=== PATIENT | female | born 1980 | race Caucasian/White ===

== ENCOUNTER 2017-03-13 19:15 | Emergency (ER) | payer SELFPAY ==
[2017-03-13] MEDS ORDERED: KETOROLAC 30 MG/ML VIAL IVP ONE (19:33)
[2017-03-13] MEDS ORDERED: ONDANSETRON HCL IV 4 MG/2 ML VIAL IVP ONE (19:33)
--- NOTE | 2017-03-13 19:38 | Emergency Department Record ---
History of Present Illness - General Chief complaint: Pain Stated complaint: RIB PAIN/HURTS TO BREATHE Time Seen by Provider: 03/13/17 19:25 Source: Patient Mode of Arrival: Ambulatory Limitations: No limitations - History of Present Illness Initial comments: 37 yo female presents to ED with a 2-3 day history of left sided lateral rib pain, pain with deep inspiration. Patient reports nausea/vomiting symptoms prior to her symptoms beginning. Patient denies fevers/chills, denies health problems at her baseline. Patient does report non-productive cough symptoms as well. Patient denies calf pain, swelling, history of DVT, or recent immobilization. MD Complaint: Other Onset/Timin -: Days(s) Location: Left History of Same: Yes Radiation: None Severity scale (1-10): 6 Quality: Aching Consistency: Constant, Getting worse Improves with: Nothing Worsens with: Nothing - Related Data Home Medications Medication Instructions Recorded Confirmed Last Taken Multivitamin [Multi-Vitamin Daily] 1 each PO DAILY 01/12/15 10/03/16 10/02/16 Previous Rx's Medication Instructions Recorded Ibuprofen [Motrin 600Mg] 600 mg PO Q6H #30 tablet 03/13/17 Allergies Allergy/AdvReac Type Severity Reaction Status Date / Time Penicillins Allergy Mild RASH Verified 10/03/16 08:36 hydrocodone bitartrate Allergy NAUSEA Verified 10/03/16 08:36 [From Vicodin] morphine AdvReac Mild NAUSEA Verified 10/03/16 08:36 codeine AdvReac VOMITING Verified 10/03/16 08:36 Travel Screening - Travel/Exposure Within Last 30 Days Have you traveled within the last 30 days?: No Review of Systems Constitutional: Denies: Chills, Fever, Malaise, Night sweats Eyes: Denies: Eye discharge, Eye pain, Photophobia ENT: Denies: Congestion, Ear pain, Epistaxis Respiratory: Denies: Cough, Dyspnea Cardiovascular: Reports: Chest pain. Denies: Dyspnea on exertion Endocrine: Denies: Fatigue, Heat or cold intolerance Gastrointestinal: Reports: Nausea, Vomiting. Denies: Abdominal pain Genitourinary: Denies: Dysuria, Frequency, Hematuria, Incontinence Musculoskeletal: Denies: Arthralgia, Back pain, Gout, Joint swelling Skin: Denies: Bruising Neurological: Denies: Abnormal gait, Headache, Numbness, Seizure Psychiatric: Denies: Anxiety Hematological/Lymphatic: Denies: Anemia, Blood Clots Past Medical History - SOCIAL HISTORY Smoking Status: Current every day smoker Alcohol Use: None Drug Use: None - RESPIRATORY Hx Respiratory Disorders: Yes Hx Asthma: Yes - CARDIOVASCULAR Hx Cardio Disorders: No - NEURO Hx Neuro Disorders: No - GI Hx GI Disorders: No - Hx Genitourinary Disorders: No - ENDOCRINE Hx Endocrine Disorders: No - MUSCULOSKELETAL Hx Musculoskeletal Disorders: No - PSYCH Hx Psych Problems: No - HEMATOLOGY/ONCOLOGY Hx Hematology/Oncology Disorders: No Family Medical History Any Significant Family History?: Yes Hx Cancer: Father, Mother Hx Heart Disease: Mother Hx HTN: Mother Physical Exam - General General Appearance: Alert, Oriented x3, Cooperative, Mild distress Limitations: No limitations - Head Head exam: Atraumatic, Normocephalic, Normal inspection Head exam detail: negative: Abrasion, Contusion, Knox's sign, General tenderness, Hematoma, Laceration - Eye Eye exam: Normal appearance. negative: Conjunctival injection, Periorbital swelling, Periorbital tenderness, Scleral icterus - ENT Ear exam: negative: Auricular hematoma, Auricular trauma Nasal Exam: negative: Active bleeding, Discharge, Dried blood, Foreign body Mouth exam: negative: Drooling, Laceration, Muffled voice, Tongue elevation - Neck Neck exam: Normal inspection. negative: Meningismus, Tenderness - Respiratory Respiratory exam: Normal lung sounds bilaterally, Chest wall tenderness (Left lateral ribs on examination). negative: Rales, Respiratory distress, Rhonchi, Stridor - Cardiovascular Cardiovascular Exam: Regular rate, Normal rhythm, Normal heart sounds - GI/Abdominal GI/Abdominal exam: Soft. negative: Rebound, Rigid, Tenderness - Rectal Rectal exam: Deferred - exam: Deferred - Extremities Extremities exam: Normal inspection. negative: Calf tenderness, Pedal edema, Tenderness - Back Back exam: Denies: CVA tenderness (R), CVA tenderness (L) - Neurological Neurological exam: Alert, Normal gait, Oriented X3 - Psychiatric Psychiatric exam: Normal affect, Normal mood - Skin Skin exam: Normal color. negative: Abrasion Type of lesion: negative: abrasion Course Vital Signs 03/13/17 19:20 Temperature 98.2 F Pulse Rate 117 H Respiratory 18 Rate Blood Pressure 125/100 Pulse Ox 98 - Reevaluation(s) Reevaluation #1: 03/13/17 20:32 Labs reviewed, D-Dimer minimally elevated, labs are otherwise grossly unremarkable for an acute process. CTA ordered. Reevaluation #2: 03/13/17 22:23 CTA Chest: No acute process Patient and her mother updated on all results, repeat abdominal examination demonstrates no pain on palpation, UA demonstrates no blood making ureteral calculus unlikely. Patient was updated on all results, reports that her pain symptoms are improved, and appears stable for discharge at this time. Medical Decision Making - Lab Data Result diagrams: 03/13/17 19:45 03/13/17 19:45 Disposition Disposition: Discharge Clinical Impression: Chest wall pain Disposition: Home, Self-Care Condition: (2) Stable Instructions: Costochondritis (ED) Additional Instructions: Return to ED if your symptoms worsen or if you have any concerns. Motrin 800 mg as directed. Follow-up with your family doctor in 3-5 days as directed. Prescriptions: Ibuprofen [Motrin 600Mg] 600 mg PO Q6H #30 tablet Forms: Patient Portal Access Time of Disposition: 22:26
[2017-03-13] MEDS ORDERED: 0.9 % SODIUM CHLORIDE 1000ML 1,000 ML IV SCH (19:45)
[2017-03-13 19:47] LABS: URINE APPEARANCE CLEAR; URINE BILIRUBIN NEGATIVE (NEGATIVE); URINE BLOOD TRACE-I (NEGATIVE); URINE COLOR YELLOW; URINE GLUCOSE (UA) NEGATIVE (NEGATIVE); URINE KETONE NEGATIVE (NEGATIVE); URINE LEUKOCYTE ESTERASE NEGATIVE (NEGATIVE); URINE NITRITE NEGATIVE (NEGATIVE); URINE PROTEIN NEGATIVE (NEGATIVE); URINE UROBILINOGEN 0.2 E.U./dL (0.20 - 1.00)
[2017-03-13 19:53] LABS: HCG,QUALITATIVE URINE NEGATIVE (NEGATIVE)
[2017-03-13 19:54] LABS: BASO % 0.5 % (0-6); EOS % 1.2 % (0-6); GRAN % 61.6 % (47-80); HEMATOCRIT 43.5 % (35.0-47.0); HEMOGLOBIN 14.8 gm/dl (11.6-16.0); LYMPH % 23.4 % (16-45); MEAN CELL VOLUME 98.4 fl (81-97); MEAN CORPUSCULAR HEMOGLOBIN 33.5 pg (27-33); MEAN PLATELET VOLUME 11.2 fl (7.4-10.4); MONO % 13.3 % (0-9); PLATELET COUNT 232 K/uL (130-400); RED BLOOD COUNT 4.42 M/uL (3.80-5.40); RED CELL DISTRIBUTION WIDTH 12.2 % (11.5-14.5); WHITE BLOOD COUNT W/O DIFF 8.1 K/uL (4.2-12.2)
[2017-03-13 19:57] LABS: URINE BACTERIA NONE SEEN; URINE RBC 0 - 2 (NONE SEEN); URINE WBC 0 - 2 (0-2/hpf)
[2017-03-13 20:06] LABS: ALB/GLOB RATIO 1.7 (1.1-1.8); ALKALINE PHOSPHATASE 103 U/L (38-126); ALT/SGPT 32 U/L (9-52); ANION GAP 9.4 (7-16); AST/SGOT 27 U/L (14-36); BILIRUBIN,TOTAL 0.43 mg/dL (0.2-1.3); BLOOD UREA NITROGEN 11 mg/dL (7-17); CARBON DIOXIDE 24.6 mmol/L (22-30); CREATININE 0.7 mg/dL (0.52-1.04); EST GLOMERULAR FILTRATION RATE > 60 ml/min; GLUCOSE,RANDOM 89 mg/dL (70-110)
[2017-03-13] MEDS ORDERED: IBUPROFEN 600 MG TABLET PO ONE (22:04)
== END 2017-03-13 22:44 | disposition home or self-care (01) ==
LOC: ER 19:15
DX: R07.81 Pleurodynia (principal); R11.2 Nausea with vomiting, unspecified; R79.89 Other specified abnormal findings of blood chemistry; F17.210 Nicotine dependence, cigarettes, uncomplicated
CPT/HCPCS: 99284 ×2; 96374; 96375; 85025; 80053; 81001; 81025; 85379; 71275; Q9967; J1885; J2405; J7030

== ENCOUNTER 2018-07-30 09:16 | Emergency (ER) | payer BC ==
[2018-07-30] MEDS ORDERED: KETOROLAC 30 MG/ML VIAL IVP ONE (09:40)
--- NOTE | 2018-07-30 09:44 | Emergency Department Record ---
History of Present Illness - General Chief Complaint: Chest Pain Stated Complaint: CHEST PAIN Time Seen by Provider: 07/30/18 09:28 Source: Patient Mode of Arrival: Ambulatory Limitations: No limitations - History of Present Illness Initial Comments: The patient is here due to R sided upper chest pain for 2-3 days. The pain is a sharp stabbing pain that is associated with nausea and ESTEE. The patient also states taking a deep breath makes the pain worse. She denies any L sided pain, fever, chills, or back pain but she has had a URI for a few days with sputum production. MD Complaint: Chest pain Onset/Timin -: Days(s) Onset: Awoke with symptoms Pain Radiation: RUE Improves With: Nothing Worsens With: Exertion, Inspiration, Other Anginal Symptoms: Dyspnea Treatments Prior to Arrival: None - Related Data Previous Rx's Medication Instructions Recorded Naproxen [Naprosyn] 250 mg PO BID #14 tablet 07/30/18 Allergies Allergy/AdvReac Type Severity Reaction Status Date / Time Penicillins Allergy Mild RASH Verified 10/03/16 08:36 hydrocodone bitartrate Allergy NAUSEA Verified 10/03/16 08:36 [From Vicodin] morphine AdvReac Mild NAUSEA Verified 10/03/16 08:36 codeine AdvReac VOMITING Verified 10/03/16 08:36 Travel Screening - Travel/Exposure Within Last 30 Days Have you traveled within the last 30 days?: No - Travel/Exposure Within Last Year Have you traveled outside the [place] in the last year?: No - Additonal Travel Details Have you been exposed to anyone with a communicable illness?: No - Travel Symptoms Symptom Screening: None Review of Systems Constitutional: Denies: Chills, Fever Eyes: Denies: Eye discharge ENT: Denies: Congestion Respiratory: Reports: Cough. Denies: Dyspnea, Hemoptysis, Stridor, Wheezes Cardiovascular: Reports: Chest pain. Denies: Arrhythmia, Dyspnea on exertion Endocrine: Reports: Fatigue Gastrointestinal: Denies: Abdominal pain, Nausea, Vomiting Genitourinary: Denies: Dysuria Musculoskeletal: Denies: Arthralgia Past Medical History - SOCIAL HISTORY Smoking Status: Current every day smoker Alcohol Use: Heavy Alcohol Use Comment: 4-5 beers daily Drug Use: Occasional Drug Use Detail:: Marijuana - RESPIRATORY Hx Respiratory Disorders: Yes Hx Asthma: Yes Hx Pneumonia: Yes - CARDIOVASCULAR Hx Cardio Disorders: No - NEURO Hx Neuro Disorders: No - GI Hx GI Disorders: No - Hx Genitourinary Disorders: No - ENDOCRINE Hx Endocrine Disorders: No - MUSCULOSKELETAL Hx Musculoskeletal Disorders: No - PSYCH Hx Psych Problems: No - HEMATOLOGY/ONCOLOGY Hx Hematology/Oncology Disorders: No Family Medical History Any Significant Family History?: No Hx Cancer: Father, Mother Hx Heart Disease: Mother Hx HTN: Mother Physical Exam - General General Appearance: Alert, Oriented x3, Cooperative, No acute distress - Head Head exam: Atraumatic, Normocephalic, Normal inspection - Eye Eye exam: Normal appearance, PERRL, EOMI - ENT Throat exam: Normal inspection. negative: Tonsillar erythema, Tonsillar exudate - Neck Neck exam: Normal inspection, Full ROM. negative: Lymphadenopathy, Meningismus , Tenderness - Respiratory Respiratory exam: Normal lung sounds bilaterally, Chest wall tenderness (The R Upper chest pain is very reproducible to palpation.). negative: Accessory muscle use, Prolonged expiratory, Respiratory distress - Cardiovascular Cardiovascular Exam: Regular rate, Normal rhythm, Normal heart sounds - GI/Abdominal GI/Abdominal exam: Soft, Normal bowel sounds. negative: Tenderness - Extremities Extremities exam: Normal inspection, Full ROM, Normal capillary refill. negative: Calf tenderness, Pedal edema, Tenderness Image of Full Body: 1 - Area of pain and reproducible chest wall tenderness. - Back Back exam: Reports: Normal inspection - Neurological Neurological exam: Alert, Oriented X3. negative: Motor sensory deficit Course Vital Signs 07/30/18 09:16 Temperature 97.9 F Pulse Rate 106 H Respiratory 16 Rate Blood Pressure 141/91 Pulse Ox 100 - Reevaluation(s) Reevaluation #1: The patient is doing a lot better at this time. She is resting comfortably with much less pain. 07/30/18 11:00 Reevaluation #2: The patient is doing a lot better. She is resting comfortably with no pain or discomfort. She is ambulating normally with normal vital signs. I did discuss the need to order a 2nd set of cardiac enzymes even though I strongly doubt any cardiac etiology. 07/30/18 12:00 Reevaluation #3: The 2nd EKG is WNL's for the patient. It has no changes compared to her old EKG dated 01/12/15. 07/30/18 13:00 Reevaluation #4: The patient 2nd set of cardiac enzymes are also normal. The patient will be discharged on Naprosyn and will need to F/U with a PCP later this week for recheck. 07/30/18 13:21 Medical Decision Making - Data Complexity MDM Data: Labs Ordered and/or Reviewed, X-Ray Ordered and/or Reviewed, EKG Ordered and/or Reviewed - Lab Data Result diagrams: 07/30/18 05:25 07/30/18 05:25 - EKG Data -: EKG Interpreted by Me EKG: No Acute Changes, Unchanged From Previous - Radiology Data Radiology results: Report reviewed (CXR: Neg. Chest CT: Neg for PE or Dissection.) Disposition Disposition: Discharge Clinical Impression: Chest wall pain Disposition: Home, Self-Care Condition: (2) Stable Instructions: Chest Wall Pain (ED) Additional Instructions: Please take the Naprosyn for pain and please see a family doctor later this week for recheck. Return to the ER for any worsening symptoms. Prescriptions: Naproxen [Naprosyn] 250 mg PO BID #14 tablet Forms: Patient Portal Access Time of Disposition: 13:23 Quality - Quality Measures Quality Measures: N/A - Blood Pressure Screening View Details: Yes Does Patient Have Any of the Following: No Blood Pressure Classification: Hypertensive Reading Systolic Measurement: 143 Diastolic Measurement: 99 Screening for High Blood Pressure: < First Hypertensive BP, F/U Documented > [ G8950] First Hypertensive Follow-up Interventions: Referral to alternative/primary care provider.
[2018-07-30 09:53] LABS: BASO % 0.6 % (0-6); EOS % 1.4 % (0-6); GRAN % 59.3 % (47-80); HEMATOCRIT 44.1 % (35.0-47.0); HEMOGLOBIN 15.1 gm/dl (11.6-16.0); LYMPH % 27.1 % (16-45); MEAN CELL VOLUME 98.7 fl (81-97); MEAN CORPUSCULAR HEMOGLOBIN 33.8 pg (27-33); MEAN CORPUSCULAR HGB CONC 34.2 g/dl (32-36); MEAN PLATELET VOLUME 11.1 fl (7.4-10.4); MONO % 11.6 % (0-9); PLATELET COUNT 262 K/uL (130-400); RED BLOOD COUNT 4.47 M/uL (3.80-5.40); RED CELL DISTRIBUTION WIDTH 12.6 % (11.5-14.5); WHITE BLOOD COUNT W/O DIFF 5.2 K/uL (4.2-12.2)
[2018-07-30 10:08] LABS: BLOOD UREA NITROGEN 7 mg/dL (6-20); CREATININE 0.6 mg/dL (0.5-0.9); EST GLOMERULAR FILTRATION RATE > 60 mL/min
[2018-07-30 10:10] LABS: TOTAL PROTEIN 7.7 g/dL (6.6-8.7)
[2018-07-30 10:11] LABS: GLUCOSE,RANDOM 100 mg/dL (74-109)
[2018-07-30 10:14] LABS: CREATINE PHOSPHOKINASE 87 U/L (26-192)
[2018-07-30 10:15] LABS: ALBUMIN 4.6 g/dL (4.0-5.0); ALKALINE PHOSPHATASE 58 U/L (35-104); ALT/SGPT 25 U/L (<33); AST/SGOT 38 U/L (10.0-35.0)
[2018-07-30 10:16] LABS: BILIRUBIN,DIRECT < 0.2 mg/dL (0-0.3)
[2018-07-30 10:17] LABS: CKMB < 1.0 ng/mL (<3.77)
[2018-07-30] MEDS ORDERED: 0.9 % SODIUM CHLORIDE 1,000 ML BAG IV ONE (10:21)
[2018-07-30] MEDS ORDERED: ACETAMINOPHEN 325 MG TAB PO ONE (10:29)
[2018-07-30 13:16] LABS: CKMB < 1.0 ng/mL (<3.77)
--- NOTE | 2018-08-01 08:54 | RADIOLOGY REPORT ---
EXAM: CHEST, TWO VIEWS HISTORY: DIFFICULTY IN BREATHING. TECHNIQUE: Frontal and lateral views of the chest were performed. Comparison: 01/12/15. FINDINGS: The heart size is normal. The lungs are hyperinflated. No infiltrate or pleural effusion. The osseous structures are normal. IMPRESSION: NEGATIVE CHEST EXAMINATION. JOB NUMBER: [id number] [facility]
--- NOTE | 2018-08-01 10:03 | CT ANGIOGRAM REPORT ---
EXAM: CTA OF THE CHEST HISTORY: DIFFICULTY BREATHING, CHEST PAIN. TECHNIQUE: CTA of the chest was performed after intravenous administration of 80 ml of Omnipaque 350 contrast material. Sagittal and coronal MIP images were performed on an independent workstation. FINDINGS: There is no mass or filling defect to suggest pulmonary embolism. The thoracic aorta appears normal. The heart and pericardium appears normal. No mediastinal or hilar lymphadenopathy. No infiltrate or pleural effusion. No pulmonary mass is appreciated. The osseous structures are grossly unremarkable. The visualized upper abdominal structures are normal. IMPRESSION: NO CTA FINDINGS SUGGESTIVE OF PULMONARY EMBOLISM. NO INFILTRATE OR PLEURAL EFFUSION. JOB NUMBER: [id number] [facility]
== END 2018-07-30 13:30 | disposition home or self-care (01) ==
LOC: ER 09:16
DX: R07.89 Other chest pain (principal); R11.0 Nausea; R06.00 Dyspnea, unspecified; R79.89 Other specified abnormal findings of blood chemistry; F17.210 Nicotine dependence, cigarettes, uncomplicated
CPT/HCPCS: 99284 ×2; 96374; 82550; 85025; 80076; 82553; 80048; 84484; 85379; 71046; 71275; 93005; 93010; Q9967; J1885; J7030

== ENCOUNTER 2018-12-15 09:47 | Emergency (ER) | payer BC ==
[2018-12-15] MEDS ORDERED: IPRATROPIUM/ALBUTEROL (0.5MG/3MG) NEB INH ONE (09:58)
[2018-12-15] MEDS ORDERED: ALBUTEROL (0.5% CONCENTRATED) 2.5 MG/0.5 ML VIAL.NEB INH ONE (09:58)
[2018-12-15] MEDS ORDERED: METHYLPREDNISOLONE PF 125MG/VIAL IVP ONE (10:14)
[2018-12-15] MEDS ORDERED: 0.9 % SODIUM CHLORIDE 1,000 ML BAG IV ONE (10:14)
[2018-12-15 10:29] LABS: BASO % 0.7 % (0-6); EOS % 1.2 % (0-6); GRAN % 55.7 % (47-80); HEMATOCRIT 44.1 % (35.0-47.0); HEMOGLOBIN 15.4 gm/dl (11.6-16.0); LYMPH % 31.7 % (16-45); MEAN CORPUSCULAR HEMOGLOBIN 34.9 pg (27-33); MEAN CORPUSCULAR HGB CONC 34.9 g/dl (32-36); MONO % 10.7 % (0-9); PLATELET COUNT 249 K/uL (130-400); RED BLOOD COUNT 4.41 M/uL (3.80-5.40); RED CELL DISTRIBUTION WIDTH 12.9 % (11.5-14.5); WHITE BLOOD COUNT W/O DIFF 5.7 K/uL (4.2-12.2)
[2018-12-15 10:40] LABS: BLOOD UREA NITROGEN 9 mg/dL (6-20); CREATININE 0.6 mg/dL (0.5-0.9); EST GLOMERULAR FILTRATION RATE > 60 mL/min
[2018-12-15 10:42] LABS: GLUCOSE,RANDOM 120 mg/dL (74-109)
--- NOTE | 2018-12-15 11:07 | Emergency Department Record ---
History of Present Illness - General Chief Complaint: Difficulty Breathing Stated Complaint: ESTEE/ASTHMA Time Seen by Provider: 12/15/18 09:59 Source: Patient Mode of Arrival: Ambulatory Limitations: No limitations - History of Present Illness Initial Comments: [pt c/o being sob. she has had bronchitis for a month and finished a course of zithromax and a steroid a month ago. she has contd to cough. she became increasingly sob since last pm. she does not have her inhaler but she used her nebulizer twice. she has had some numbness in her hands. she smokes. MD Complaint: Cough Onset/Timin -: Days(s) Severity: Moderate Severity scale (1-10): 5 Quality: Aching Consistency: Constant Improves With: Bronchodilators Known History Of: Asthma Context: Recent URI Associated Symptoms: Cough Treatments Prior to Arrival: Bronchodilator - Related Data Previous Rx's Medication Instructions Recorded Naproxen [Naprosyn] 250 mg PO BID #14 tablet 07/30/18 Prednisone [Prednisone 20Mg] 20 mg PO Q12HR #8 tab 12/15/18 Allergies Allergy/AdvReac Type Severity Reaction Status Date / Time Penicillins Allergy Mild RASH Verified 12/15/18 09:55 hydrocodone bitartrate Allergy NAUSEA Verified 12/15/18 09:55 [From Vicodin] morphine AdvReac Mild NAUSEA Verified 12/15/18 09:55 codeine AdvReac VOMITING Verified 12/15/18 09:55 Travel Screening - Travel/Exposure Within Last 30 Days Have you traveled within the last 30 days?: No - Travel/Exposure Within Last Year Have you traveled outside the [place] in the last year?: No - Additonal Travel Details Have you been exposed to anyone with a communicable illness?: No - Travel Symptoms Symptom Screening: None Review of Systems Reviewed: No additional complaints except as noted below Constitutional: Reports: As per HPI. Denies: Chills, Fever, Malaise, Night sweats, Weakness, Weight change Eyes: Reports: As per HPI. Denies: Eye discharge, Eye pain, Photophobia, Vision change ENT: Reports: As per HPI. Denies: Congestion, Dental pain, Ear pain, Epistaxis , Hearing loss, Throat pain Respiratory: Reports: As per HPI. Denies: Cough, Dyspnea, Hemoptysis, Stridor, Wheezes Cardiovascular: Reports: As per HPI. Denies: Arrhythmia, Chest pain, Dyspnea on exertion, Edema, Murmurs, Orthopnea, Palpitations, Paroxysmal nocturnal dyspnea, Rheumatic Fever, Syncope Endocrine: Reports: As per HPI. Denies: Fatigue, Heat or cold intolerance, Polydipsia, Polyuria Gastrointestinal: Reports: As per HPI. Denies: Abdominal pain, Constipation, Diarrhea, Hematemesis, Hematochezia, Melena, Nausea, Vomiting Genitourinary: Reports: As per HPI. Denies: Abnormal menses, Discharge, Dyspareunia, Dysuria, Frequency, Hematuria, Incontinence, Retention, Urgency Musculoskeletal: Reports: As per HPI. Denies: Arthralgia, Back pain, Gout, Joint swelling, Myalgia, Neck pain Skin: Reports: As per HPI. Denies: Bruising, Change in color, Change in hair/ nails, Lesions, Pruritus, Rash Neurological: Reports: As per HPI. Denies: Abnormal gait, Confusion, Headache, Numbness, Paresthesias, Seizure, Tingling, Tremors, Vertigo, Weakness Psychiatric: Reports: As per HPI. Denies: Anxiety, Auditory hallucinations, Depression, Homicidal thoughts, Suicidal thoughts, Visual hallucinations Hematological/Lymphatic: Reports: As per HPI. Denies: Anemia, Blood Clots, Easy bleeding, Easy bruising, Swollen glands Past Medical History - SOCIAL HISTORY Smoking Status: Current every day smoker Alcohol Use: Occasional Drug Use: Occasional Drug Use Detail:: Marijuana - RESPIRATORY Hx Respiratory Disorders: Yes Hx Asthma: Yes Hx Bronchitis: Yes Hx Pneumonia: Yes - CARDIOVASCULAR Hx Cardio Disorders: No - NEURO Hx Neuro Disorders: No - GI Hx GI Disorders: No - Hx Genitourinary Disorders: No - ENDOCRINE Hx Endocrine Disorders: No - MUSCULOSKELETAL Hx Musculoskeletal Disorders: No - PSYCH Hx Psych Problems: No - HEMATOLOGY/ONCOLOGY Hx Hematology/Oncology Disorders: No Family Medical History Any Significant Family History?: Yes Hx Cancer: Father, Mother Hx Heart Disease: Mother Hx HTN: Mother Physical Exam - General General Appearance: Alert, Oriented x3, Cooperative, Mild distress - Head Head exam: Normal inspection - Eye Eye exam: Normal appearance, PERRL, EOMI Pupils: Normal accommodation - ENT ENT exam: Normal exam, Mucous membranes moist, Normal external ear exam, Normal orophraynx Ear exam: Normal external inspection. negative: External canal tenderness Nasal Exam: Normal inspection. negative: Discharge, Sinus tenderness Mouth exam: Normal external inspection, Tongue normal Teeth exam: Normal inspection. negative: Dental caries Throat exam: Normal inspection. negative: Tonsillar erythema, Tonsillar exudate - Neck Neck exam: Normal inspection, Full ROM. negative: Tenderness - Respiratory Respiratory exam: Accessory muscle use, Respiratory distress, Wheezes - Cardiovascular Cardiovascular Exam: Regular rate, Normal rhythm, Normal heart sounds - GI/Abdominal GI/Abdominal exam: Soft, Normal bowel sounds. negative: Tenderness - Rectal Rectal exam: Deferred - exam: Deferred - Extremities Extremities exam: Normal inspection, Full ROM, Normal capillary refill. negative: Tenderness - Back Back exam: Reports: Normal inspection, Full ROM. Denies: Muscle spasm, Rash noted, Tenderness - Neurological Neurological exam: Alert, Normal gait, Oriented X3, Reflexes normal - Psychiatric Psychiatric exam: Normal affect, Normal mood - Skin Skin exam: Dry, Intact, Normal color, Warm Course Vital Signs 12/15/18 12/15/18 09:49 09:57 Temperature 97.7 F Pulse Rate 124 H 102 H Respiratory 20 20 Rate Blood Pressure 137/91 Pulse Ox 98 99 Medical Decision Making - Lab Data Result diagrams: 12/15/18 10:20 12/15/18 10:20 Lab Results 12/15/18 12/15/18 Range/Units 10:20 10:20 WBC 5.7 (4.2-12.2) K/uL RBC 4.41 (3.80-5.40) M/uL Hgb 15.4 (11.6-16.0) gm/dl Hct 44.1 (35.0-47.0) % MCV 100.0 H (81-97) fl MCH 34.9 H (27-33) pg MCHC 34.9 (32-36) g/dl RDW 12.9 (11.5-14.5) % Plt Count 249 (130-400) K/uL MPV 11.0 H (7.4-10.4) fl Gran % 55.7 (47-80) % Lymphocytes % 31.7 (16-45) % Monocytes % 10.7 H (0-9) % Eosinophils % 1.2 (0-6) % Basophils % 0.7 (0-6) % Sodium 141 (136-145) mmol/L Potassium 3.4 (3.4-4.5) mmol/L Chloride 102 (98-107) mmol/L Carbon Dioxide 21.0 L (22-29) mmol/L Anion Gap 18.0 H (7-16) BUN 9 (6-20) mg/dL Creatinine 0.6 (0.5-0.9) mg/dL Estimated GFR > 60 mL/min Random Glucose 120 H (74-109) mg/dL Calcium 9.4 (8.6-10.0) mg/dL Disposition Disposition: Discharge Clinical Impression: Asthmatic bronchitis Qualifiers: Asthma severity: moderate Asthma persistence: persistent Asthma complication type: with acute exacerbation Qualified Code(s): J45.41 - Moderate persistent asthma with (acute) exacerbation Disposition: Home, Self-Care Condition: (1) Good Instructions: Dyspnea (ED), Moderate and Severe Persistent Asthma (ED), How to Stop Smoking (ED) Additional Instructions: follow up with family doctor. return sooner if worse. stop smoking. use inhaler if needed 2 puffs every 4 hrs Prescriptions: Prednisone [Prednisone 20Mg] 20 mg PO Q12HR #8 tab Forms: Patient Portal Access Quality - Quality Measures Quality Measures: N/A - Blood Pressure Screening Does Patient Have Any of the Following: No Blood Pressure Classification: Hypertensive Reading Systolic Measurement: 137 Diastolic Measurement: 91 Screening for High Blood Pressure: < Pre-Hypertensive BP, F/U Documented > [ G8950] Pre-Hypertensive Follow-up Interventions: Follow-up with rescreen every year.
[2018-12-15] MEDS ORDERED: KETOROLAC 30 MG/ML VIAL IVP ONE (11:08)
[2018-12-15] MEDS ORDERED: ALBUTEROL HFA 8 GM INHALER INH ONE (11:47)
--- NOTE | 2018-12-17 13:55 | RADIOLOGY REPORT ---
EXAM: CHEST, TWO VIEWS HISTORY: PATIENT HAS WHEEZING TIMES SIX DAYS. TECHNIQUE: Two views of the chest are provided along with the comparison study dated 07/30/18. FINDINGS: The cardiomediastinal silhouette is within normal limits for size and contour. There is no radiographic evidence of a focal infiltrate , pleural effusion, or pneumothorax. Hyperinflation is noted suggesting viral versus reactive airways disease. IMPRESSION: HYPERINFLATION IS IDENTIFIED SUGGESTING VIRAL AIRWAYS DISEASE VERSUS REACTIVE AIRWAYS DISEASE. CLINICAL CORRELATION IS RECOMMENDED. NO FOCAL CONSOLIDATION, PLEURAL EFFUSION, OR PNEUMOTHORAX IS NOTED. JOB NUMBER: [id number] [facility]
== END 2018-12-15 12:07 | disposition home or self-care (01) ==
LOC: ER 09:47
DX: J45.40 Moderate persistent asthma, uncomplicated (principal); F17.210 Nicotine dependence, cigarettes, uncomplicated
CPT/HCPCS: 71046; 80048; 85025; 85379; 94640; 94664; 96374; 96375; 99284; J1885; J2930; J7030